=== PATIENT | female | born 1985 | race Caucasian/White ===

== ENCOUNTER → 2016-09-05 | Outpatient (CLI) | payer OTHER ==
[~2016-09-05] MED LIST: AMOXICILLIN500 M3 PO; CLINDAMYCIN HC300 MG PO; CORTISPORIN SUS10 ML OT; NAPROSYN500 MG PO; NORCO 325 MG-51 TAB PO; OMEPRAZOLE20 M2 PO; PERCOCET 325 MG1 TA2 PO; ZOFRAN4 MG PO
== END | disposition home or self-care (01) ==
LOC: CT 09-03 11:00
DX: R42 Dizziness and giddiness (principal); R51 Headache

== ENCOUNTER → 2016-10-06 | Day surgery (SDC) | payer OTHER ==
[~2016-10-06] VITALS: Ht 170.1 cm; Wt 70.3 kg
[~2016-10-06] MED LIST changes: +MECLIZINE HCL25 M2 PO; +ZOLOFT50 MG PO
--- NOTE | ~2016-10-06 | O ---
[place], [place] OPERATIVE NOTE [id number] UNIT #: [id number] ROOM: DOCTOR: CRISTHIAN OCHOA MD BIRTHDATE: [birth year] DOS: 10/06/2016 PREOPERATIVE DIAGNOSIS: Toxic labyrinthitis left ear. POSTOPERATIVE DIAGNOSIS: Toxic labyrinthitis left ear. OPERATION: Intratympanic dexamethasone perfusion left ear. SURGEON: Dr. Ochoa. ANESTHESIA: General. OPERATIVE FINDINGS AND PROCEDURE: Following induction of general anesthesia the patient was positioned supine on the OR table, draped in a standard fashion for ear surgery. Approximately 1 mL of dexamethasone injection 10 mg/mL concentration was placed in the left middle ear space using a 25 gauge spinal needle. The patient tolerated the procedure well, was awakened and transported to PACU in satisfactory condition. CRISTHIAN OCHOA MD CM:OPRECORD:OPERATIVE NOTE [id number] CRISTIHAN OCHOA MD 10/08/16 1146 interface
[2016-10-06 12:00] VITALS: BP 113/72
[2016-10-06 12:45] VITALS: BP 97/62
[2016-10-06 13:00] VITALS: BP 102/67
[2016-10-06 13:15] VITALS: BP 108/67
== END | disposition home or self-care (01) ==
LOC: SDC 10-01 09:30
DX: H83.02 Labyrinthitis, left ear (principal); H90.42 Sensorineural hearing loss, unilateral, left ear, with unrestricted hearing on the contralateral side; Z80.0 Family history of malignant neoplasm of digestive organs

== ENCOUNTER → 2017-09-01 | Outpatient (CLI) | payer OTHER | END | disposition home or self-care (01) | LOC: US 12:37 | DX: R10.31 Right lower quadrant pain (principal) ==

== ENCOUNTER 2019-01-02 16:48 | Emergency (ER) | payer OTHER ==
[~2019-01-02] VITALS: Ht 170.1 cm; Wt 68.0 kg
--- NOTE | ~2019-01-02 | EKG ---
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
--- NOTE | ~2019-01-02 | EKG ---
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
[2019-01-02 17:20] LABS: BASO # 0.1 10*3/uL (0.0-0.1); BASO % 0.9 % (0.0-1.0); EOS # 0.1 10*3/uL (0.0-0.4); EOS % 0.8 % (1.0-4.0); HEMATOCRIT 43.5 % (37.0-47.0); HEMOGLOBIN 14.7 g/dl (12.0-16.0); LYMPH % 30.4 % (27.0-41.0); MEAN CELL VOLUME 95.6 fl (81.0-99.0); MEAN CORPUSCULAR HGB 32.3 pg (27.0-31.0); MEAN CORPUSCULAR HGB CONC 33.8 g/dl (33.0-37.0); MEAN PLATELET VOLUME 11.3 fl (9.6-12.3); MONO # 0.4 10*3/uL (0.1-1.0); MONO % 6.5 % (3.0-9.0); NEUT # 4.1 10*3/uL (2.3-7.9); NEUT % 61.2 % (47.0-73.0); PLATELET COUNT AUTOMATED 260 10*3/uL (130-400); RED BLOOD COUNT 4.55 10*6/uL (4.10-5.10); RED CELL DISTRI WIDTH 12.1 % (0-14.5); WHITE BLOOD COUNT 6.6 10*3/uL (4.8-10.8)
[2019-01-02 17:30] LABS: ACT PARTIAL THROMBO TIME 25.6 SECONDS (20.0-32.1); INTERNATIONAL NORM RATIO 0.9 (2.0-3.5)
[2019-01-02 17:36] LABS: ALBUMIN 4.4 gm/dl (3.1-4.5); ALKALINE PHOSPHATASE 83 U/L (45-117); BUN 13 mg/dl (7-24); CHLORIDE 107 mmol/L (98-107); CREATININE 0.81 mg/dL (0.55-1.02); LIPASE 348 U/L (73-393); POTASSIUM 3.6 mmol/L (3.5-5.1); SGOT/AST 18 IU/L (3-35); SGPT/ALT 45 U/L (12-78); SODIUM 139 mmol/L (136-145); TOTAL PROTEIN 8.4 gm/dL (6.4-8.2)
[2019-01-02 17:37] LABS: BETA-HCG, QUANT < 1.0 mIU/mL (1-3)
[2019-01-02 17:40] LABS: TROPONIN I < 0.015 ng/ml (<0.045)
== END 2019-01-02 21:10 | disposition home or self-care (01) ==
LOC: ED 16:48
PROVIDERS: Emergency Medicine
DX: R06.02 Shortness of breath (principal); M54.9 Dorsalgia, unspecified; R07.89 Other chest pain; R05 Cough; Z88.0 Allergy status to penicillin; Z91.018 Allergy to other foods; Z79.899 Other long term (current) drug therapy

== ENCOUNTER → 2019-12-15 | Outpatient (CLI) | payer OTHER | END | disposition home or self-care (01) | LOC: US 13:22 | DX: R68.81 Early satiety (principal); M54.5 Low back pain; G89.29 Other chronic pain; N94.10 Unspecified dyspareunia; Z12.4 Encounter for screening for malignant neoplasm of cervix; Z80.41 Family history of malignant neoplasm of ovary ==

== ENCOUNTER → 2020-01-12 | Outpatient (CLI) | payer OTHER | END | disposition home or self-care (01) | LOC: RAD 13:27 | DX: M25.50 Pain in unspecified joint (principal); M54.5 Low back pain; M54.6 Pain in thoracic spine ==

== ENCOUNTER → 2020-02-08 | Outpatient (CLI) | payer OTHER | END | disposition home or self-care (01) | LOC: RAD 12:33 | DX: M54.6 Pain in thoracic spine (principal); R07.89 Other chest pain; M62.838 Other muscle spasm; N64.4 Mastodynia ==

== ENCOUNTER → 2020-02-12 | Outpatient (CLI) | payer OTHER | END | disposition home or self-care (01) | LOC: MAMMO 13:18 | DX: N60.01 Solitary cyst of right breast (principal); R07.89 Other chest pain; M62.838 Other muscle spasm ==

== ENCOUNTER → 2021-04-10 | Outpatient (CLI) | payer OTHER | END | disposition home or self-care (01) | LOC: US 08:27 | PROVIDERS: ATTEND Nurse Practitioner Primary Care | DX: R07.9 Chest pain, unspecified (principal) ==

== ENCOUNTER → 2021-04-21 | Outpatient (CLI) | payer OTHER | END | disposition home or self-care (01) | LOC: US 00:12 | PROVIDERS: ATTEND Nurse Practitioner Women's Health | DX: N60.01 Solitary cyst of right breast (principal); N64.4 Mastodynia; N94.6 Dysmenorrhea, unspecified; R10.2 Pelvic and perineal pain; N92.0 Excessive and frequent menstruation with regular cycle ==

== ENCOUNTER → 2021-05-26 | Outpatient (CLI) | payer OTHER | END | disposition home or self-care (01) | LOC: CT 10:00 | PROVIDERS: ATTEND Nurse Practitioner Primary Care | DX: R07.9 Chest pain, unspecified (principal) ==